=== PATIENT | male | born 1955 | race Caucasian/White ===

== ENCOUNTER 2019-10-17 06:35 | Day surgery (SDC) | payer BC ==
[~2019-10-17] VITALS: Ht 182.9 cm; Wt 95.0 kg
[~2019-10-17 06:35] MED LIST: LOSA50 PO
--- NOTE | 2019-10-17 07:19 | NUR ---
History, Chart, Medications and Allergies reviewed before start of procedure. Lungs clear T/O to Auscultation. Patient confirms NPO status and agrees with scheduled surgery. Pre-Op teaching done. Pt verbalizes understanding. Patient reports completing Chlorhexadine shower X2 prior to admission to hospital.
--- NOTE | 2019-10-17 07:37 | NUR ---
500CC BOLUS INFUSING PRIOR TO PT GOING BACK TO [facility].
--- NOTE | 2019-10-17 08:33 | NUR ---
10/17/19 0833 Junior Mehta CONVERTED FROM A SPINAL TO GENERAL ANESTHESIA AT 0805.
[2019-10-17] MEDS ORDERED: LOSA50 PO (10:42)
--- NOTE | 2019-10-17 17:55 | NUR ---
SHIFT SUMMARY PATIENT STATES FULL SENSATION TO LE'S. DENIES PAIN. TOLERATING PO. UP TO BR, VOIDING WELL. DRESSING TO L HIP D&I. CIRC CHECKS WNL. NO C/O AT THIS TIME. ANTICIPATE PT IN AM AND D/C HOME.
--- NOTE | 2019-10-18 04:32 | NUR ---
SHIFT SUMMARY POD1 LTHA AA0X4, VSS. PT HAS BEEN UP AND AMBULATING IN ROOM. MEDICATED FOR PAIN PER EMAR. PT STATES WELL CONTROLLED. NO DRAINAGE NOTED ON AQUACEL. PT REPORTS FULL SENSATION IN FEET AND HAS BEEN FOLLOWING HIP PRECAUTIONS WELL. PLAN IS TO WORK WITH THERAPY IN THE MORNING AND DISCHARGE.
[2019-10-18 04:51] LABS: BASOPHILS ABSOLUTE AUTO 0.01 K/mm3 (0.00-0.23); BASOPHILS PERCENT AUTO 0 % (0-2); EOSINOPHILS ABSOLUTE AUTO 0.01 K/mm3 (0.00-0.68); EOSINOPHILS PERCENT AUTO 0 % (0-6); Hematocrit 36.2 % (37.0-53.0); IMMATURE GRAN ABSOLUTE AUTO 0.03 K/mm3 (0.00-0.10); IMMATURE GRAN PERCENT AUTO 0 % (0-1); LYMPHOCYTES ABSOLUTE AUTO 1.19 K/mm3 (0.84-5.20); LYMPHOCYTES PERCENT AUTO 14 % (21-46); MONOCYTES ABSOLUTE AUTO 0.79 K/mm3 (0.16-1.47); MONOCYTES PERCENT AUTO 9 % (4-13); Mean Corpuscular HGB 31.7 pg (26.0-34.0); Mean Corpuscular HGB Conc 33.1 g/dL (31.5-36.5); Mean Corpuscular Volume 96 fL (80-100); Mean Platelet Volume 9.6 fL (9.1-12.4); NEUTROPHILS ABSOLUTE AUTO 6.76 K/mm3 (1.96-9.15); NEUTROPHILS PERCENT AUTO 77 % (41-73); Platelet Count 188 K/mm3 (150-400); RDW Coefficient Variation 12.8 % (11.7-14.2); RDW Standard Deviation 45.3 fL (35.1-46.3); Red Blood Cell Count 3.78 M/mm3 (4.30-5.90); White Blood Cell Count 8.79 K/mm3 (4.00-11.30)
[2019-10-18 05:18] LABS: Anion Gap 6 mmol/L (6-16); Blood Urea Nitrogen 16 mg/dL (8-24); Bun/Creatinine Ratio 16.3 (12.0-20.0); CO2, Blood 25 mmol/L (21-32); Calcium, Blood 8.3 mg/dL (8.5-10.1); Chloride, Blood 110 mmol/L (98-108); Creatinine, Blood 0.98 mg/dL (0.60-1.20); Glomerular Filtration Rate >60 (60-); Glucose, Blood 104 mg/dL (70-99); Magnesium, Blood 2.2 mg/dL (1.6-2.4); Potassium, Blood 4.1 mmol/L (3.5-5.5); Sodium, Blood 141 mmol/L (136-145)
[2019-10-18] MEDS ORDERED: ACET500 PO (09:51)
[2019-10-18] MEDS ORDERED: ASPI81CH PO (09:52)
[2019-10-18] MEDS ORDERED: OXYC5 PO (09:52)
--- NOTE | 2019-10-18 10:17 | NUR ---
PATIENT D/C'D HOME WITH SPOUSE AT THIS TIME; BOTH STATE UNDERSTANDING OF MEDS, WOUND CARE, ACTIVITY, F/U APPT, OP PT,ETC. PATIENT HAS DENIED NEED FOR PAIN MED. VOIDING WELL, TOLERATING PO. L HIP DRESSING D&I. CIRC CHECKS WNL. NO ACUTE CHANGES.
== END 2019-10-18 10:17 | disposition home or self-care (01) ==
LOC: ORSCMMR 06:35 → ORD 07:30 → ORSCMMR 07:30 → SURS 11:00 → ORSCMMR 10-18 10:17
PROVIDERS: Orthopaedic Surgery
PROC: 0SRB0JA Replacement of Left Hip Joint with Synthetic Substitute, Uncemented, Open Approach (ICD-10-PCS; principal; 2019-10-17 07:30)
DX: M16.12 Unilateral primary osteoarthritis, left hip (principal); Z11.59 Encounter for screening for other viral diseases; I10 Essential (primary) hypertension; Z79.899 Other long term (current) drug therapy
CPT/HCPCS: 36415; 72170; 80048; 83735; 85025; 88300; 97110; 97112; 97116; 97161; A9270-GY; C1776; J0171; J0690; J0735; J1100; J1885; J2250; J2370; J2405; J2704; J2795; J3010; J7120; U0002

== ENCOUNTER 2020-04-17 09:24 | Day surgery (SDC) | payer BC ==
[~2020-04-17] VITALS: Ht 182.9 cm; Wt 94.2 kg
[~2020-04-17 09:24] MED LIST changes: +ACET500 PO; +ASPI81CH PO; +OXYC5 PO
== END 2020-04-17 12:13 | disposition home or self-care (01) ==
LOC: ORSCSDS 09:24
PROVIDERS: Internal Medicine Gastroenterology
PROC: 0DBK8ZX Excision of Ascending Colon, Via Natural or Artificial Opening Endoscopic, Diagnostic (ICD-10-PCS; principal; 2020-04-17 11:00)
DX: Z12.11 Encounter for screening for malignant neoplasm of colon (principal); D12.2 Benign neoplasm of ascending colon; K57.30 Diverticulosis of large intestine without perforation or abscess without bleeding; K64.8 Other hemorrhoids; K64.4 Residual hemorrhoidal skin tags; I10 Essential (primary) hypertension; Z79.899 Other long term (current) drug therapy
CPT/HCPCS: 88305; J2250; J2704; J7120

== ENCOUNTER 2021-07-12 10:18 | Day surgery (SDC) | payer OTHER ==
[~2021-07-12] VITALS: Ht 182.9 cm; Wt 106.4 kg
[~2021-07-12 10:18] MED LIST changes: +TAMS.4ER PO
--- NOTE | 2021-07-12 11:01 | NUR ---
Ambulatory in Day Surgery. History, Chart, Medications and Allergies reviewed before start of procedure.Patient confirms NPO status and agrees with scheduled surgery. Lungs clear T/O to Auscultation. Pre-Op teaching done. Pt verbalizes understanding.
--- NOTE | 2021-07-12 18:29 | NUR ---
SPINAL UPDATE: PT STATES THAT HE IS STILL UNABLE TO MOVE HIS LEGS AND IS GAINING SLIGHT FEELING BACK IN HIS FEET. WILL UPDATE ONCOMING SHFIT REGARDING PT'S SPINAL IMPROVEMENTS.
--- NOTE | 2021-07-13 02:15 | NUR ---
AGREE WITH [employer] SUPERVISOR SHIFT ASSESSMENT DOCUMENTATION.
--- NOTE | 2021-07-13 04:16 | NUR ---
SHIFT SUMMARY PT AOX4, POD1 FOR TOTAL LEFT KNEE. PRIENO DRESSING C/D/I. POLAR PACK TO LEFT KNEE. DENIES PAIN, MEDICATED FOR SCHEDULED TYLENOL AND TORADOL. TOLERATES PO INTAKE, DENIES GAS AT THIS TIME. ABLE TO AMBULATE 1 ASSIST TO BATHROOM. VOIDING EASILY. PT TO WORK WITH THERAPY IN THE AM FOR SAFE DISCHARGE HOME. VSS STABLE CALL LIGHT IN REACH WILL CONTINUE TO MONITOR.
[2021-07-13 04:38] LABS: BASOPHILS ABSOLUTE AUTO 0.01 K/mm3 (0.00-0.23); BASOPHILS PERCENT AUTO 0 % (0-2); EOSINOPHILS PERCENT AUTO 0 % (0-6); Hematocrit 40.7 % (37.0-53.0); Hemoglobin 13.5 g/dL (13.5-17.5); IMMATURE GRAN ABSOLUTE AUTO 0.03 K/mm3 (0.00-0.10); IMMATURE GRAN PERCENT AUTO 0 % (0-1); LYMPHOCYTES ABSOLUTE AUTO 0.72 K/mm3 (0.84-5.20); LYMPHOCYTES PERCENT AUTO 8 % (21-46); MONOCYTES ABSOLUTE AUTO 0.51 K/mm3 (0.16-1.47); MONOCYTES PERCENT AUTO 6 % (4-13); Mean Corpuscular HGB 30.8 pg (26.0-34.0); Mean Corpuscular HGB Conc 33.2 g/dL (31.5-36.5); Mean Corpuscular Volume 93 fL (80-100); Mean Platelet Volume 9.4 fL (9.1-12.4); NEUTROPHILS ABSOLUTE AUTO 7.39 K/mm3 (1.96-9.15); NEUTROPHILS PERCENT AUTO 85 % (41-73); Platelet Count 202 K/mm3 (150-400); RDW Coefficient Variation 13.2 % (11.7-14.2); RDW Standard Deviation 45.3 fL (35.1-46.3); Red Blood Cell Count 4.38 M/mm3 (4.30-5.90); White Blood Cell Count 8.66 K/mm3 (4.00-11.30)
[2021-07-13 05:02] LABS: Bun/Creatinine Ratio 15.8 (12.0-20.0); Calcium, Blood 8.5 mg/dL (8.5-10.1); Creatinine, Blood 1.01 mg/dL (0.60-1.20); Magnesium, Blood 2.1 mg/dL (1.6-2.4); Potassium, Blood 4.2 mmol/L (3.5-5.5)
[2021-07-13] MEDS ORDERED: ACET500 PO (07:49)
[2021-07-13] MEDS ORDERED: ASPI81CH PO (07:50)
[2021-07-13] MEDS ORDERED: OXYC5 PO (07:51)
--- NOTE | 2021-07-13 09:54 | NUR ---
DISCHARGE SUMMARY: PT WORKED WITH THERAPY THIS AM AND WAS CLEARED. PAIN WELL CONTROLLED T/O SHIFT. EATING, DRINKING, VOIDING. DISCHARGE INSTRUCTIONS GIVEN. PER DR. PETERSON TELEPHONE DISCUSSION WITH CHARGE NURSE YESTERDAY, SCRIPTS SENT ELECTRONICALLY TO [facility]. 2 AQUACEL BANDAGES AND POLAR PACK GIVEN W/ DISCHARGE PACKET. ESCORTED OUT VIA WHEELCHAIR.
== END 2021-07-13 09:54 | disposition home or self-care (01) ==
LOC: ORSCMMR 10:18 → ORD 11:30 → ORSCMMR 11:30 → SURS 16:42 → ORSCMMR 07-13 09:54
PROVIDERS: Orthopaedic Surgery
PROC: 0SRD0JA Replacement of Left Knee Joint with Synthetic Substitute, Uncemented, Open Approach (ICD-10-PCS; principal; 2021-07-12 11:30)
PROC: 8E0Y0CZ Robotic Assisted Procedure of Lower Extremity, Open Approach (ICD-10-PCS; principal; 2021-07-12 11:30)
DX: M17.12 Unilateral primary osteoarthritis, left knee (principal); Z96.651 Presence of right artificial knee joint; I10 Essential (primary) hypertension; Z79.899 Other long term (current) drug therapy
CPT/HCPCS: 27447; S2900; 36415; 73560-LT; 80048; 83735; 85025; 97110; 97116; 97161; A9270; C1776; J0171; J0690; J0735; J1100; J1885; J2250; J2405; J2704; J2795; J3010; J7120

== ENCOUNTER → 2023-12-25 | Outpatient (CLI) | payer BC | LOC: LAB SHORT 13:11 → LAB 13:11 | DX: R07.89 Other chest pain (principal) | CPT/HCPCS: 85379 ==